=== PATIENT | male | born 1980 | race Caucasian/White ===

== ENCOUNTER 2019-12-10 18:50 | Emergency (ER) | payer OTHER, SELFPAY ==
[2019-12-10 19:14] VITALS: BP 127/72; PULSE 80; RESP 16; TEMP 36.6; O2SAT 99
--- NOTE | 2019-12-10 19:28 | ED.GENADULT ---
HPI - General Adult General Chief complaint: Upper Respiratory Infection Stated complaint: Cough/chest congestion History of Present Illness HPI narrative: This a 39-year-old male comes in complaining of upper respiratory issue states he has been coughing having fevers approximately 2 days ago patient was treated last week for influenza although he tested negative. Patient's family member in the house was positive for influenza patient is here because he is going to need a note to go back to work. Related Data Home Medications Medication Instructions Recorded Confirmed glipizide 5 mg PO DAILY 12/10/19 12/10/19 Allergies Allergy/AdvReac Type Severity Reaction Status Date / Time No Known Allergies Allergy Verified 12/10/19 19:35 Review of Systems Review of Systems: Narrative: CONSTITUTIONAL: reports he fever, chills, or sweats. EYES: Denies visual changes, redness, or discharge. ENT: Reports rhinorrhea, congestion, sore throat, or otalgia. CARDIOVASCULAR:Denies chest pain, palpitations, or edema. RESPIRATORY: Denies cough or dyspnea. GASTROINTESTINAL: Denies abdominal pain, nausea, vomiting, or diarrhea. GENITOURINARY: Denies dysuria or hematuria. SKIN:[Denies rash or itching. MUSCULOSKELETAL:Denies back pain, joint pain, or myalgia. NEUROLOGIC: Denies headache, numbness, or weakness. PSYCHIATRIC:Denies anxiety or depression PMFSH Comments At time as signature, I have reviewed and agree with nursing past medical, social, surgical and family history. Please see nursing chart for further information. There is no relevant family history pertinent to the presenting complaint. Exam Narrative: Exam Narrative: GENERAL:Well-appearing, well-nourished, and in no acute distress. HEAD:Normocephalic, atraumatic. EYES: PERRLA and EOMI. ENT: Nares clear, no rhinorrhea or epistaxis. Mucous membranes moist. Pharyngeal erythema TM bulging clear fluid persistent coughing NECK: Supple. CHEST: Clear to auscultation. No respiratory distress. HEART: Regular rate and rhythm. No murmur heard. Normal peripheral pulses. ABDOMEN: Soft, nontender, nondistended, normal active bowel sounds. EXTREMITIES: Normal range of motion. No edema. SKIN: Warm, dry, no rash. NEURO: No focal deficits. Alert and oriented x3. Course Vital Signs Vital signs: Vital Signs Temperature 97.8 F 12/10/19 19:14 Pulse Rate 80 12/10/19 19:14 Respiratory Rate 16 12/10/19 19:14 Blood Pressure 127/72 12/10/19 19:14 Pulse Oximetry 99 12/10/19 19:14 Temperature 97.8 F 12/10/19 19:14 Pulse Rate 80 12/10/19 19:14 Respiratory Rate 16 12/10/19 19:14 Blood Pressure 127/72 12/10/19 19:14 Pulse Oximetry 99 12/10/19 19:14 Medical Decision Making Differential Diagnosis Differential Diagnosis: pneumonia, Allergic Rhinitis, Asthma/COPD exacerbation, Upper respiratory cough syndrome, Pharyngitis, Sinusitis, Bronchitis, Influenza actually been treated they just do not know how they just got treated Vital Signs Vital Signs: Vital Signs Temperature 97.8 F 12/10/19 19:14 Pulse Rate 80 12/10/19 19:14 Respiratory Rate 16 12/10/19 19:14 Blood Pressure 127/72 12/10/19 19:14 Pulse Oximetry 99 12/10/19 19:14 Temperature 97.8 F 12/10/19 19:14 Pulse Rate 80 12/10/19 19:14 Respiratory Rate 16 12/10/19 19:14 Blood Pressure 127/72 12/10/19 19:14 Pulse Oximetry 99 12/10/19 19:14 Discharge Plan Discharge Clinical Impression: Viral infection, Influenza Pharyngitis Qualifiers: Pharyngitis/tonsillitis etiology: unspecified etiology Qualified Code(s): J02.9 - Acute pharyngitis, unspecified Patient Disposition: Home, Self-Care Condition: Stable Instructions: Antibiotic Form, Pharyngitis (ED), Influenza (ED) Additional Instructions: Viral illness may last between 7-12days; antibiotic is NOT recommended at this time. Recommend antihistamine such as Benadryl at night time and Claritin/Zyrtec/Al
== END 2019-12-10 19:40 | disposition home or self-care (01) ==
PROVIDERS: Emergency Provider Nurse Practitioner Family
DX: B34.9 Viral infection, unspecified (principal); J11.1 Influenza due to unidentified influenza virus with other respiratory manifestations; E11.9 Type 2 diabetes mellitus without complications
CPT/HCPCS: 99203; G0463